=== PATIENT | female | born 1970 | race Two or more races ===

== ENCOUNTER 2022-03-06 19:25 | Emergency (ER) | payer OTHER, MEDICAID ==
[~2022-03-06] VITALS: Ht 170.2 cm; Wt 60.0 kg
[2022-03-06] MEDS ORDERED: TETANUS, DIPHTHERIA, PERTUSSIS VAC/PF 0.5ML (>10YR OLD) IM ONE (22:15)
[2022-03-06] MEDS ORDERED: BACITRACIN ZINC OINT UDPKT TOP ONE (22:15)
[2022-03-06] MEDS ORDERED: KETOROLAC 60MG/2ML VIAL IM ONE (22:15)
[2022-03-06] MEDS ORDERED: BO1 TP (23:31)
[2022-03-06] MEDS ORDERED: METH-773 MT (23:31)
[2022-03-06] MEDS ORDERED: IBUP-2029 MT (23:31)
[2022-03-07 00:23] VITALS: BP 128/76
== END 2022-03-07 00:24 | disposition home or self-care (01) ==
LOC: ER 19:25
DX: R07.89 Other chest pain (principal); S40.812A Abrasion of left upper arm, initial encounter; V49.9XXA Car occupant (driver) (passenger) injured in unspecified traffic accident, initial encounter; Y93.89 Activity, other specified; Y92.89 Other specified places as the place of occurrence of the external cause; Y99.8 Other external cause status
CPT/HCPCS: 70450; 71045; 72125; 96372; 99284; J1885; 90715